=== PATIENT | male | born 1980 | race Caucasian/White ===

== ENCOUNTER 2017-01-11 13:10 | Emergency (ER) | payer BC, OTHER ==
--- NOTE | 2017-01-11 13:13 | PDOC ---
History of Present Illness - General Chief Complaint: Lightheaded Stated Complaint: LIGHTHEADED, "FEELING FOGGY" Time Seen by Provider: 01/11/17 13:12 Past History - Past Medical History Allergies/Adverse Reactions: Allergies Allergy/AdvReac Type Severity Reaction Status Date / Time No Known Drug Allergies Allergy Verified 01/11/17 13:11 dust Allergy Uncoded 01/11/17 13:11 Home Medications: Ambulatory Orders Amox-Tr/K Cl [Augmentin 875Mg Tablet] 1 tab PO BID #20 tablet 03/15/16 Ibuprofen [Advil -] 200 mg PO ASDIR PRN 01/11/17 Naproxen Sodium [Aleve] 220 mg PO ASDIR PRN 01/11/17 - Psycho/Social/Smoking Cessation Hx Anxiety: No Suicidal Ideation: No Smoking History: Never smoked Have you smoked in the past 12 months: No Hx Alcohol Use: Yes Drug/Substance Use Hx: No Substance Use Type: Alcohol ED Treatment Course - LABORATORY CBC & Chemistry Diagram: 01/11/17 13:50 01/11/17 13:50 Medical Decision Making - Medical Decision Making 01/11/17 14:44 EKG 13:29 NORMAL Sinus Rhythm No Acute ST T Changes No Ectopy Normal [place] Normal Intervals CXR Stable *DC/Admit/Observation/Transfer Diagnosis at time of Disposition: Malaise and fatigue, Lightheadedness - Discharge Dispostion Disposition: HOME Condition at time of disposition: Stable Admit: No - Patient Instructions Printed Discharge Instructions: DI for Muscle Weakness Additional Instructions: Mr Cardenas- Sorry that you are going through this. Just use your common sense, return to us if worse or new problems occur, follow up with your regular physician later this week. Ish- Dr. Royer Potts
[2017-01-11 13:16] VITALS: BP 123/79; PULSE 76; TEMP 97.7; BMI 28.5
[2017-01-11] MEDS ORDERED: SODIUM CHLORIDE 1,000 ML IV STA (13:23)
[2017-01-11 14:05] LABS: PH,URINE 5.5 (4.5-8); URINE APPEARANCE Clear; URINE BILIRUBIN Negative (NEGATIVE); URINE BLOOD Negative (NEGATIVE); URINE GLUCOSE (UA) Negative (NEGATIVE); URINE KETONE Negative (NEGATIVE); URINE LEUK ESTERASE Negative (NEGATIVE); URINE NITRITE Negative (NEGATIVE); URINE PROTEIN Negative (NEGATIVE); URINE UROBILINOGEN 0.2 E.U/dl (0.2-1.0)
[2017-01-11 14:07] LABS: BASOPHIL 1.4 % (0-2.0); EOSINOPHIL 1.6 % (0-4.5); MCH 29.2 pg (25.7-33.7); MCHC 33.6 g/dl (32.0-35.9); MEAN CELL VOLUME 86.9 fl (80-96); MEAN PLT VOLUME 9.5 fl (7.5-11.1); NEUTROPHILS 58.7 % (42.8-82.8); PLATELET COUNT 239 K/MM3 (134-434); RDW 12.1 % (11.9-15.9); WHITE BLOOD COUNT 7.3 K/mm3 (4.0-10.8)
[2017-01-11 14:27] LABS: INR 1.11 (0.82-1.09); PROTHROMBIN TIME (PATIENT) 12.4 SEC (10.2-13.0)
[2017-01-11 14:29] LABS: CPK(DFH) 149 IU/L (38-174)
[2017-01-11 14:30] LABS: ALBUMIN 4.6 g/dl (3.5-5.0); ALK PHOS 69 U/L (32-92); ANION GAP 9 (8-16); BILIRUBIN,TOTAL 0.6 mg/dl (0.2-1.0); CALCIUM 9.1 mg/dl (8.4-10.2); CO2 27 mmol/L (22-28); GLUCOSE,RANDOM 98 mg/dl (74-106); SGOT/AST 26 U/L (10-42); SGPT/ALT 33 U/L (10-40); TOT PROT 7.1 g/dl (6.4-8.3)
[2017-01-11 14:31] LABS: COCKROFT - GAULT NT
[2017-01-11 14:33] LABS: URINE COLOR YELLOW
[2017-01-11 14:39] LABS: TROPONIN I (DFP) < 0.03 ng/ml (0.03-0.50)
[2017-01-11 15:20] LABS: D-DIMER < 200 ng/ml (<200-235)
--- NOTE | 2017-01-12 08:53 | EKG ---
Test Reason : Blood Pressure : / mmHG Vent. Rate : 074 BPM Atrial Rate : 074 BPM P-R Int : 134 ms QRS Dur : 104 ms QT Int : 374 ms P-R-T Axes : 031 051 017 degrees QTc Int : 415 ms NORMAL SINUS RHYTHM NORMAL ECG WHEN COMPARED WITH ECG OF 17-AUG-2012 14:05, NO SIGNIFICANT CHANGE WAS FOUND Confirmed by YASSINE VINSON MD ([id number]) on 01/12/2017 8:52:54 AM Referred By: CHARLENE ALEGRE Confirmed By:YASSINE VINSON MD
== END 2017-01-11 16:11 | disposition home or self-care (01) ==
LOC: FER 13:10
PROC: 3E0337Z Introduction of Electrolytic and Water Balance Substance into Peripheral Vein, Percutaneous Approach (ICD-10-PCS; principal; 2017-01-11)
DX: R42 Dizziness and giddiness (principal); R53.83 Other fatigue; R53.81 Other malaise
CPT/HCPCS: 36415; 71010-TC; 80053; 81003; 82550; 84484; 85025; 85379; 85610; 93005; 99284-25

== ENCOUNTER 2022-05-04 10:50 | Emergency (ER) | payer BC ==
[2022-05-04] MEDS ORDERED: ACETAMINOPHEN 325 MG TABLET (FP) PO ONE (10:56)
[2022-05-04] MEDS ORDERED: METHOCARBAMOL 500 MG TABLET PO ONE (10:56)
[2022-05-04] MEDS ORDERED: LIDOCAINE 5% TOPICAL PATCH TP ONE (10:56)
[2022-05-04] MEDS ORDERED: KETOROLAC TROMETHAMINE 30 MG/1 ML VIAL IM ONE (10:56)
[2022-05-04 11:03] VITALS: BP 129/84; PULSE 73; RESP 15; TEMP 98.8; BMI 27.1
[2022-05-04] MEDS ORDERED: KETOROLAC TROMETHAMINE 30 MG/1 ML VIAL ONE (11:05)
[2022-05-04] MEDS ORDERED: METHOCARBAMOL 500 MG TABLET ONE (11:05)
[2022-05-04] MEDS ORDERED: LIDOCAINE 5% TOPICAL PATCH ONE (11:05)
[2022-05-04] MEDS ORDERED: ACETAMINOPHEN 325 MG TABLET (FP) ONE (11:05)
[2022-05-04] MEDS ORDERED: LIDOCAINE PATCH REMOVAL MC SCH (22:00)
== END 2022-05-04 11:37 | disposition home or self-care (01) ==
LOC: FER 10:50
PROC: 3E023GC Introduction of Other Therapeutic Substance into Muscle, Percutaneous Approach (ICD-10-PCS; principal; 2022-05-04)
DX: M54.50 Low back pain, unspecified (principal)
CPT/HCPCS: 99284-25

== ENCOUNTER 2023-04-30 17:51 | Emergency (ER) | payer BC ==
[2023-04-30 18:39] VITALS: BP 125/90; PULSE 72; RESP 18; TEMP 98.6; BMI 27.1
[2023-04-30 19:52] LABS: HEMATOCRIT 45.2 % (35.4-49); MCH 29.5 pg (25.7-33.7); MCHC 33.2 g/dl (32.0-35.9); MEAN CELL VOLUME 88.7 fl (80-96); MEAN PLT VOLUME 8.2 fl (7.5-11.1); PLATELET COUNT 251.9 10^3/uL (134-434); WHITE BLOOD COUNT 8.6 10^3/uL (4.0-10.8)
[2023-04-30] MEDS ORDERED: predniSONE 20 MG TABLET (UD) PO ONE (20:01)
[2023-04-30] MEDS ORDERED: COLCHICINE 0.6 MG CAP PO ONE (20:01)
[2023-04-30] MEDS ORDERED: NAPROXEN 500 MG TABLET PO ONE (20:01)
[2023-04-30] MEDS ORDERED: COLCHICINE 0.6 MG TAB ONE (20:11)
[2023-04-30] MEDS ORDERED: predniSONE 20 MG TABLET (UD) ONE (20:11)
[2023-04-30] MEDS ORDERED: NAPROXEN 500 MG TABLET ONE (20:11)
[2023-04-30 20:13] LABS: ALBUMIN 4.4 g/dl (3.4-5.0); BLOOD UREA NITROGEN 15.4 mg/dl (7-18); CALCIUM 9.4 mg/dl (8.5-10.1); POTASSIUM 4.4 mmol/L (3.5-5.1); SGPT/ALT 28.7 U/L (7-52); TOT PROT 6.6 g/dl (6.4-8.2); URIC ACID 6.8 mg/dl (2.6-7.2)
[2023-04-30 21:11] LABS: BILIRUBIN,TOTAL 0.3 mg/dL (0.2-1)
== END 2023-04-30 21:40 | disposition home or self-care (01) ==
LOC: FER 17:51
DX: M79.672 Pain in left foot (principal); R22.42 Localized swelling, mass and lump, left lower limb
CPT/HCPCS: 36415; 80053; 84550; 85027; 99283-25

== ENCOUNTER 2023-11-03 04:38 | Day surgery (SDC) | payer BC ==
[2023-10-27 15:03] VITALS: BMI 26.7
[2023-11-03 08:41] VITALS: TEMP 97.1
[2023-11-03 09:09] VITALS: PULSE 70
[2023-11-03 09:10] VITALS: BP 117/85; RESP 16
== END 2023-11-03 09:28 | disposition home or self-care (01) ==
LOC: JASU-ENDO 04:38
PROVIDERS: ATTEND Internal Medicine Gastroenterology
PROC: 0DJD8ZZ Inspection of Lower Intestinal Tract, Via Natural or Artificial Opening Endoscopic (ICD-10-PCS; principal; 2023-11-03 08:00)
DX: Z12.11 Encounter for screening for malignant neoplasm of colon (principal); K64.8 Other hemorrhoids